=== PATIENT | female | born 1955 | race Caucasian/White ===

== ENCOUNTER 2019-03-03 13:36 | Emergency (ER) | payer MEDICARE ==
[~2019-03-03] VITALS: Ht 149.9 cm; Wt 76.4 kg
[~2019-03-03 13:36] MED LIST: ADV250 IH; ADV500 IH; CYCL10 PO; DESL5TAB PO; FLUT16H NASAL; HYD25 PO; HYDR25TA PO; LEVO75 PO; LISI-662 PO; METF-960 PO; MONT5TAB13 PO; PRAV40TA4 PO; SERT100T12 PO
[2019-03-03] MEDS ORDERED: LOPERAMIDE HCL 2 MG CAPSULE PO ONE (14:30)
[2019-03-03] MEDS ORDERED: ONDANSETRON HCL 4 MG/2 ML VIAL IVP ONE (14:30)
[2019-03-03] MEDS ORDERED: SODIUM CHLORIDE 0.9% 1,000 ML IV ONE (14:30)
[2019-03-03] MEDS ORDERED: KETOROLAC TROMETHAMINE 30 MG/ML VIAL IVP ONE (14:30)
[2019-03-03 15:00] LABS: BASOPHILS % (AUTO) 0.5 % (0.0-2.0); HEMATOCRIT 36.8 % (36-46); LYMPHOCYTES # (AUTO) 2.9 K/uL (1.0-4.8); LYMPHOCYTES % (AUTO) 34.9 % (22.0-44.0); MEAN CORPUSCULAR HEMOGLOBIN 28.8 pg (26.0-34.0); MEAN CORPUSCULAR HGB CONC 32.5 G/dL (31.0-37.0); MEAN CORPUSCULAR VOLUME 89 fL (80-100); MONOCYTES # (AUTO) 0.7 K/uL (0.1-1.0); NEUTROPHILS # (AUTO) 4.2 K/uL (1.8-7.7); NEUTROPHILS % (AUTO) 51.6 % (40.0-70.0); PLATELET COUNT (AUTO) 227 K/uL (150-450); RED BLOOD CELL COUNT(AUTO) 4.15 MIL/uL (4.00-5.20); RED CELL DISTRIBUTION WIDTH 13.3 % (11.5-14.5)
[2019-03-03 15:01] LABS: GLUCOSE,POINT OF CARE 84 MG/DL (70-110)
[2019-03-03 15:17] LABS: ANION GAP 4 mmol/L (8-16); CALCIUM, TOTAL 8.7 mg/dL (8.8-10.5); CARBON DIOXIDE 31 mmol/L (22-29); CHLORIDE 111 mmol/L (98-107); CREATININE 0.75 mg/dL (0.60-1.30); GLOMERULAR FILTR. RATE CALC > 60 mL/min (>60); GLUCOSE,RANDOM 88 mg/dL (70-110); SODIUM SERUM 146 mmol/L (136-145); UREA NITROGEN, BLOOD 17 mg/dL (7-18)
[2019-03-03 15:31] LABS: ALANINE AMINOTRANSFERASE 73 U/L (12-78); ALBUMIN 3.1 g/dL (3.4-5.0); ALKALINE PHOSPHATASE 112 U/L (46-116); ASPARTATE AMINOTRANSFERASE 51 U/L (15-37); BILIRUBIN,TOTAL 0.4 mg/dL (0.1-1.0); TOTAL PROTEIN, SERUM 6.4 g/dL (6.4-8.2)
[2019-03-03 16:25] VITALS: BP 141/83
== END 2019-03-03 16:32 | disposition home or self-care (01) ==
LOC: EMS 13:37
DX: B34.9 Viral infection, unspecified (principal); R42 Dizziness and giddiness; R51 Headache; E11.9 Type 2 diabetes mellitus without complications; E78.00 Pure hypercholesterolemia, unspecified; I10 Essential (primary) hypertension; E03.9 Hypothyroidism, unspecified; Z88.8 Allergy status to other drugs, medicaments and biological substances; Z91.013 Allergy to seafood; Z79.899 Other long term (current) drug therapy; Z79.84 Long term (current) use of oral hypoglycemic drugs
CPT/HCPCS: 36415; 80053; 82962; 85025; 96361; 96374; 96375; 99283; J1885; J2405; J7030

== ENCOUNTER 2021-08-19 14:52 | Emergency (ER) | payer MEDICARE ==
[~2021-08-19] VITALS: Ht 149.9 cm; Wt 73.0 kg
[~2021-08-19 14:52] MED LIST changes: -ADV250 IH; -CYCL10 PO; +CYCL10TA17 PO; +FLUT1DIS6 IH; -HYD25 PO; +HYDR-4527 PO; -HYDR25TA PO; +HYDR25TA2 PO; -LISI-662 PO; +LISI-894 PO; +METF-1211 PO; -METF-960 PO; +SERT-162 PO; -SERT100T12 PO
[2021-08-19 15:13] VITALS: BP 131/77
[2021-08-19] MEDS ORDERED: VALA500T42 PO (16:18)
[2021-08-19] MEDS ORDERED: ValACYclovir HCL 500 MG TABLET PO ONE (16:30)
== END 2021-08-19 17:07 | disposition home or self-care (01) ==
LOC: EMS 14:55
DX: B02.9 Zoster without complications (principal); I10 Essential (primary) hypertension; E78.00 Pure hypercholesterolemia, unspecified; K21.9 Gastro-esophageal reflux disease without esophagitis; J44.9 Chronic obstructive pulmonary disease, unspecified; Z88.8 Allergy status to other drugs, medicaments and biological substances; Z91.013 Allergy to seafood; Z79.899 Other long term (current) drug therapy
CPT/HCPCS: 99283

== ENCOUNTER 2021-11-13 17:26 | Emergency (ER) | payer MEDICARE ==
[~2021-11-13] VITALS: Ht 149.9 cm; Wt 72.7 kg
[~2021-11-13 17:26] MED LIST changes: +CYCL-448 PO; -CYCL10TA17 PO; -DESL5TAB PO; +DESL5TAB39 PO; +HYDR-4870 PO; -HYDR25TA2 PO; +VALA500T42 PO
[2021-11-13 18:02] VITALS: BP 142/63
[2021-11-13] MEDS ORDERED: LEVO50 PO (18:06)
[2021-11-13] MEDS ORDERED: VALA100026 PO (20:23)
== END 2021-11-13 20:34 | disposition home or self-care (01) ==
LOC: EMS 17:26
DX: B02.9 Zoster without complications (principal); I10 Essential (primary) hypertension; E78.00 Pure hypercholesterolemia, unspecified; J44.9 Chronic obstructive pulmonary disease, unspecified; K21.9 Gastro-esophageal reflux disease without esophagitis; Z88.8 Allergy status to other drugs, medicaments and biological substances; Z79.84 Long term (current) use of oral hypoglycemic drugs; Z79.899 Other long term (current) drug therapy
CPT/HCPCS: 99281; Z7502